=== PATIENT | male | born 1970 | race Hispanic/Latino ===

== ENCOUNTER 2017-01-02 13:15 | Day surgery (SDC) | payer OTHER ==
--- NOTE | 2017-01-02 14:44 | Anesthesia Day of Surgery ---
Anesthesia Day of Surgery - Day of Surgery Patient Examined: Yes Patient H&P Reviewed: Yes Patient is NPO: Yes (no nausea)
--- NOTE | 2017-01-02 14:44 | Anesthesia Consultation ---
Anesthesia Consult and Med Hx Date of service: 01/02/17 - Airway Anesthetic Teeth Evaluation: Good ROM Head & Neck: Adequate Mental/Hyoid Distance: Inadequate Mallampati Class: Class I Intubation Access Assessment: Possibly Difficult - Pulmonary Exam CTA: Yes - Cardiac Exam Cardiac Exam: RRR - Pre-Operative Health Status ASA Pre-Surgery Classification: ASA2 Proposed Anesthetic Plan: General - Pre-Anesthesia Comment Pre-Anesthesia Comments: kidney stones otherwise healthy
[2017-01-02] MEDS ORDERED: ZOFRAN IV PRN (14:45)
[2017-01-02] MEDS ORDERED: DILAUDID IV NR (14:45)
[2017-01-02] MEDS ORDERED: PERCOCET 5/325 PO PRN (14:45)
[2017-01-02] MEDS ORDERED: DILAUDID IV PRN (14:45)
[2017-01-02] MEDS ORDERED: VERSED IV NR (15:00)
[2017-01-02] MEDS ORDERED: LACTATED RINGERS 1,000 ML IV SCH (15:00)
[2017-01-02] MEDS ORDERED: PEPCID IV NR (15:00)
[2017-01-02] MEDS ORDERED: ANCEF/STERILE WATER 2 GM/20 ML IV NR (16:00)
[2017-01-02] MEDS ORDERED: OMNIPAQUE (300 MG) IR ONE (18:13)
[2017-01-02] MEDS ORDERED: WATER FOR IRRIG STERILE IR ONE (18:13)
[2017-01-02] MEDS ORDERED: XYLOCAINE MPF 2% ONE (18:17)
[2017-01-02] MEDS ORDERED: DIPRIVAN 10 MG/ML IV ONE (18:17)
[2017-01-02] MEDS ORDERED: SUBLIMAZE ONE (18:17)
[2017-01-02] MEDS ORDERED: ZOFRAN ONE (18:23)
[2017-01-02] MEDS ORDERED: DECADRON ONE (18:23)
--- NOTE | 2017-01-02 19:07 | Short Stay Summary ---
Short Stay Documentation Date of service: 01/02/17 - History H&P: obtained from office - Allergies and Medications Current Medications: Allergies oxycodone Adverse Reaction (Verified 01/02/17 15:13) Itching Home Medications Medication Instructions Recorded Confirmed Last Taken Type Oxycodone HCl/Acetaminophen 5 mg PO Q6HR 01/02/17 01/02/17 01/01/17 22:30 History [Oxycodone-Acetaminophen 5-325] Active Medications Cefazolin Sodium (Ancef/Sterile Water 2 Gm/20 Ml) 2 gm IV PREOP NR Stop: 01/02/17 23:59 Famotidine (Pepcid) 20 mg IV PREOP NR Stop: 01/02/17 23:59 Last Admin: 01/02/17 14:59 Dose: 20 mg Hydromorphone HCl (Dilaudid) 0.5 mg IV Q10MIN PRN PRN Reason: Severe Pain Stop: 01/02/17 23:59 Hydromorphone HCl (Dilaudid) 0.5 mg IV ONCE NR Stop: 01/02/17 23:59 Last Admin: 01/02/17 14:58 Dose: 0.5 mg Lactated Ringer's (Lactated Ringers) 1,000 mls @ 100 mls/hr IV DIRECT SAEED Last Admin: 01/02/17 14:57 Dose: 100 mls/hr Midazolam HCl (Versed) 2 mg IV PREOP NR Stop: 01/02/17 23:59 Last Admin: 01/02/17 15:02 Dose: 2 mg Ondansetron HCl (Zofran) 4 mg IV ONCE PRN PRN Reason: Nausea And Vomiting Stop: 01/02/17 23:59 Oxycodone/Acetaminophen (Percocet 5/325) 1 tab PO ONCE PRN PRN Reason: Pain, Moderate (4-6) Stop: 01/02/17 23:59 - Brief post op/procedure progress note Date of procedure: 01/02/17 Pre-op diagnosis: rt hydro, 1mm ureteral stone Post-op diagnosis: same Procedure: cysto, bilat rpg, rt ureteroscopy, dilated rt ureter, basket stone, stent with short internal string Anesthesia: GETA Surgeon: PAVITHRA GRAJEDA Estimated blood loss: minimal Pathology: none Specimen disposition: to lab Condition: stable - Hospital course Hospital course: pt has cipro ultram, noroc, zofran, flomax - Disposition Condition at discharge: Stable Disposition: [id number] TO HOME OR SELFCARE
[2017-01-02] MEDS ORDERED: DILAUDID ONE (19:35)
--- NOTE | 2017-01-02 19:37 | Operative Report ---
PREOPERATIVE DIAGNOSIS: Right hydronephrosis, right mid ureteral 1 mm stone. POSTOPERATIVE DIAGNOSES: Right hydronephrosis, right mid ureteral 1 mm stone, distal right ureteral stricture. PROCEDURE PERFORMED: Cystoscopy, bilateral retrograde pyelograms, right ureteroscopy, dilatation of right ureter, basket stone extraction, double-J stent (6 Maldivian 26 cm with short internal string). SURGEON: Noel Newman MD. ANESTHESIA: General. ANESTHESIOLOGIST: Dr. Brink. ESTIMATED BLOOD LOSS: Minimal. FLUIDS: Crystalloid. COMPLICATIONS: None. INDICATIONS: This patient is a 46-year-old gentleman seen in the office with right flank pain. CT of abdomen and pelvis revealed right 1 mm mid ureteral stone with left renal stone. We discussed options. He was in significant pain. We are going to proceed with surgical intervention. DESCRIPTION OF PROCEDURE: The patient was taken to the operative suite, placed in a supine position, after adequate general anesthesia, placed in a dorsal lithotomy position, prepped and draped in a sterile fashion. Pancystourethroscopy was performed with a 22 [place] Storz cystoscope. No urethral or prostatic abnormalities. His bladder with no stones or polyps. Both ureteral orifices in normal position. Bilateral retrograde pyelograms were obtained with an 8 Maldivian catheter and 8 mL of contrast. No filling defects or obstruction on the left. Right side significant narrowing of the distal fourth of the right ureter and dilatation. Based on those findings two 0.035 Glidewires were placed. The first one went up without difficulty. The second had to be the ureteroscope. The rigid ureteroscope was placed. I was able to cannulate the stricture and advance the scope with dilation of the distal ureter. The small stone could be visualized ureter. Ureteroscopy up to the renal pelvis was performed upon trying to retrieve the stone with basket. It was lost and appeared in the drapes. A 6 Mal[place]ian 26 cm double-J stent with a neck with an internal string was left indwelling. Fluoroscopy confirmed adequate position. Rectal exam was benign. He was extubated and taken to recovery room in stable condition. He is to continue his Cipro. He has Flomax, [place], Zofran and Ultram. JOB# [id number] [facility]
--- NOTE | 2017-01-02 19:53 | Post Anesthesia Evaluation ---
- Post Anesthesia Evaluation Patient Participated: Yes Airway Patent: Yes Stable Respiratory Function: Yes Temp > 96.8F: Yes Pain Manageable: Yes Adequeate Hydration: Yes Anesthesia Complications: No Block Receding Appropriately: Not Applicable
[2017-01-03 00:15] VITALS: BP 123/73
--- NOTE | 2017-01-03 07:55 | Fluoroscopy Report ---
FLUOROSCOPY RETROGRADE UROGRAPHY History: Right hydronephrosis, right ureteral stone. Findings: Fluoroscopy was provided by radiology during retrograde urography by urology. 9 fluoroscopic images were captured. The left pyelogram is normal. A filling defect is identified in the distal right ureter consistent with a stone. Right ureteroscopy was performed with removal of the right ureteral stone. A right ureteral stent was placed which adequately drains the right collecting system on the final image. Please correlate with the procedural report by Dr. Newman as needed. Impression: Right ureteral stone removal and right ureteral stent placement as described. Normal left pyelogram.
== END 2017-01-02 13:16 | disposition home or self-care (01) ==
LOC: OR 13:15
PROVIDERS: ATTEND Urology
DX: N13.2 Hydronephrosis with renal and ureteral calculous obstruction (principal); N13.1 Hydronephrosis with ureteral stricture, not elsewhere classified; I10 Essential (primary) hypertension; Z79.2 Long term (current) use of antibiotics; Z88.8 Allergy status to other drugs, medicaments and biological substances
CPT/HCPCS: 52332; 52344; 52352; 74420; A4217; C1726; C1758; C1769; C2617; J0690; J1100; J1170; J2250; J2405; J2704; J3010; J7120; Q9967